=== PATIENT | male | born 1980 | race Two or more races ===

== ENCOUNTER → 2016-11-23 | Outpatient (CLI) | payer BC | LOC: M OUTALCOH 10:05 | PROVIDERS: ATTEND Psychiatry & Neurology Psychiatry | DX: F10.20 Alcohol dependence, uncomplicated (principal) ==

== ENCOUNTER → 2016-12-24 | Outpatient (RCR) | payer BC | LOC: M OUTALCOH 12-14 12:06 | PROVIDERS: ATTEND Psychiatry & Neurology Psychiatry | DX: F10.20 Alcohol dependence, uncomplicated (principal) ==

== ENCOUNTER 2017-01-19 16:00 | Outpatient (RCR) | payer BC | END 2017-01-23 | LOC: M OUTALCOH 16:00 | PROVIDERS: ATTEND Psychiatry & Neurology Psychiatry | DX: F10.20 Alcohol dependence, uncomplicated (principal) ==

== ENCOUNTER 2017-02-22 16:00 | Outpatient (RCR) | payer BC | END 2017-02-23 | LOC: M OUTALCOH 16:00 | PROVIDERS: ATTEND Psychiatry & Neurology Psychiatry | DX: F10.20 Alcohol dependence, uncomplicated (principal) ==

== ENCOUNTER → 2017-03-25 | Outpatient (RCR) | payer BC | LOC: M OUTALCOH 02-24 15:55 | PROVIDERS: ATTEND Psychiatry & Neurology Psychiatry | DX: Z13.9 Encounter for screening, unspecified (principal); F10.20 Alcohol dependence, uncomplicated ==

== ENCOUNTER → 2017-04-25 | Outpatient (RCR) | payer BC | LOC: M OUTALCOH 03-28 11:45 | PROVIDERS: ATTEND Psychiatry & Neurology Psychiatry | DX: F10.20 Alcohol dependence, uncomplicated (principal) ==

== ENCOUNTER 2017-05-18 16:00 | Outpatient (RCR) | payer BC | END 2017-05-26 | LOC: M OUTALCOH 16:00 | PROVIDERS: ATTEND Psychiatry & Neurology Psychiatry | DX: F10.20 Alcohol dependence, uncomplicated (principal) ==

== ENCOUNTER 2017-06-16 15:29 | Outpatient (RCR) | payer BC | END 2017-06-25 | LOC: M OUTALCOH 15:29 | PROVIDERS: ATTEND Psychiatry & Neurology Psychiatry | DX: F10.20 Alcohol dependence, uncomplicated (principal) ==

== ENCOUNTER 2017-09-15 16:00 | Outpatient (RCR) | payer BC | END 2017-09-25 | LOC: M OUTALCOH 16:00 | DX: F10.20 Alcohol dependence, uncomplicated (principal) ==

== ENCOUNTER 2017-10-13 16:00 | Outpatient (RCR) | payer BC | END 2017-10-26 | LOC: M OUTALCOH 16:00 | DX: F10.20 Alcohol dependence, uncomplicated (principal) ==

== ENCOUNTER 2018-01-10 08:00 | Outpatient (RCR) | payer BC | END 2018-01-23 | LOC: M OUTALCOH 08:00 | DX: F10.20 Alcohol dependence, uncomplicated (principal) ==

== ENCOUNTER 2018-02-27 10:52 | Outpatient (RCR) | payer BC | END 2018-03-25 | LOC: M OUTALCOH 10:52 | DX: F10.20 Alcohol dependence, uncomplicated (principal) ==

== ENCOUNTER → 2020-10-09 | Outpatient (CLI) | payer SELFPAY | LOC: M LABSMTC 12:01 | PROVIDERS: ATTEND Pediatrics | DX: Z20.822 Contact with and (suspected) exposure to COVID-19 (principal) ==

== ENCOUNTER 2023-03-16 14:04 | Emergency (ER) | payer BC, SELFPAY ==
[2023-03-16 16:19] LABS: PHENCYCLIDINE URINE NEGATIVE (NEGATIVE)
[2023-03-16 16:20] LABS: AMPHETAMINES LEVEL URINE NEGATIVE (NEGATIVE); BARBITURATES URINE NEGATIVE (NEGATIVE); BENZODIAZEPINES URINE NEGATIVE (NEGATIVE); CANNABINOIDS URINE NEGATIVE (NEGATIVE); METHADONE URINE NEGATIVE (NEGATIVE); OPIATES URINE NEGATIVE (NEGATIVE)
[2023-03-16 16:21] LABS: ETHYL ALCOHOL (ETHANOL) 0.038 % (0.000-0.010); HEMATOCRIT 44.2 % (42.0-52.0); HEMOGLOBIN 15.2 g/dl (13.5-17.5); MEAN CORPUSCULAR HEMOGLOBIN 30.5 pg (27.0-33.0); MEAN CORPUSCULAR HGB CONC 34.4 g/dl (32.0-36.5); MEAN CORPUSCULAR VOLUME 88.6 fl (80.0-96.0); PLATELET COUNT, AUTOMATED 266 10^3/uL (150-450); RED BLOOD COUNT 4.99 10^6/uL (4.30-6.10); WHITE BLOOD COUNT 4.9 10^3/uL (4.0-10.0)
[2023-03-16 16:22] LABS: COCAINE METABOLITE URINE POSITIVE (NEGATIVE)
[2023-03-16 16:23] LABS: SALICYLATE LEVEL < 3.0 MG/DL (<30)
[2023-03-16 16:24] LABS: ACETAMINOPHEN LEVEL < 2.0 UG/ML (10.0-20.0); ALBUMIN 4.7 G/DL (3.2-5.2); ALKALINE PHOSPHATASE 50 U/L (46-116); ALT/SGPT 45 U/L (7.0-40); AST/SGOT 25 U/L (<34); BILIRUBIN,DIRECT 0.2 MG/DL (<0.4); BILIRUBIN,TOTAL 0.7 MG/DL (0.3-1.2); BLOOD UREA NITROGEN 10 MG/DL (9-23); CARBON DIOXIDE LEVEL 27 MMOL/L (20-31); CHLORIDE LEVEL 103 MMOL/L (98-107); CREATININE FOR GFR 0.87 MG/DL (0.70-1.30); GLOMERULAR FILTRATION RATE > 60.0 (>60); GLUCOSE, FASTING 67 MG/DL (60-100); POTASSIUM SERUM 4.5 MMOL/L (3.5-5.1); SODIUM LEVEL 138 MMOL/L (136-145); TOTAL PROTEIN 7.9 G/DL (5.7-8.2)
[2023-03-16 16:25] LABS: THYROID STIMULATING HORMONE 1.155 uIU/ML (0.55-4.78)
[2023-03-16 18:53] VITALS: BP 173/90; TEMP 98.3; O2SAT 98
== END 2023-03-16 18:55 | disposition home or self-care (01) ==
LOC: M ED 14:04
DX: Z04.6 Encounter for general psychiatric examination, requested by authority (principal)